=== PATIENT | male | born 1990 | race African-American/Black ===

== ENCOUNTER 2020-08-09 12:20 | Emergency (ER) | payer SELFPAY ==
--- NOTE | 2020-08-09 13:06 | TELE ---
HPI Do you have fever,cough or shortness of breath?: No - General History Source: Patient Exam Limitations: No Limitations - History of Present Illness 08/09/20 13:03 Patient is a 30-year-old male who participated in a virtual urgent care visit requesting a Covid test for preprocedure for colonoscopy on 08/15/2020. The patient states he believes he needs the test within 5 days of his procedure. He denies any symptoms at all. He denies any recent travel outside of the within the last 30 days, or outside of [place] within the last 15. He denies any known Covid contacts. The patient has no past medical history no allergies to medications. Review of Systems - Review of Systems Comments:: 08/09/20 13:04 - Review of Systems Able to Perform ROS?: Yes Constitutional: No: Fever, Chills, Loss of Appetite, Night Sweats, Weakness; positive: Routine Covid testing preprocedure HEENTM: No: Eye Pain, Vision changes, Ear Pain, Throat Pain, Throat Swelling, Mouth Pain, Difficulty Swallowing Respiratory: No: Cough, Shortness of Breath, Wheezing, Sputum Production Cardiac (ROS): No: Chest Pain, Chest Tightness, Palpitations, Irregular Heart Beat, Edema ABD/GI: No: Nausea, Vomiting, Abdominal Pain, Diarrhea : No Dysuria, No Hematuria, No Frequency, No Urgency Musculoskeletal: No: Muscle Pain, Back Pain, Joint Pain, Muscle Weakness, Neck Pain Integumentary: No: Lesions, Rash Neurological: No: Headache, Numbness, Tingling, Weakness, Speech Difficulties *Physical Exam - Physical Exam 08/09/20 13:04 - Physical Exam General Appearance: Nourished, Appropriately Dressed, No Distress HEENT: EOMI, Normal Voice, Hearing Grossly Normal Neck: No Decreased range of motion Respiratory/Chest: Normal chest excursion appreciated, No Accessory Muscle Use Gastrointestinal/Abdominal: No distention Musculoskeletal: Normal Inspection Integumentary: Normal Color, Dry. No Rash Neurologic: roll setter II-XII NML intact, Fully Oriented, Alert, Normal Mood/Affect, Normal Response - Medical Decision Making 08/09/20 13:04 Assessment: Patient is a 30-year-old male requesting a Covid test preprocedure for colonoscopy on 08/15/2020. He is completely asymptomatic. Plan: -Covid swab ordered -Covid counseling given, isolation precautions reviewed -Patient to proceed to our [facility] for testing, the test was ordered for 08/12/2020 as the patient is requesting it to be done 72 hours prior to his procedure on 08/15/2020. -He understands and agrees with this treatment and plan Discharge Diagnosis at time of Disposition: Counseled about COVID-19 virus infection - Referrals - Patient Instructions Discharge Instructions: [facility] Instructions, [facility] COVID-19 Isolation Protocol Additional Discharge Instructions: You were seen via a telehealth visit and tested for COVID today. You should follow isolation precautions as per [facility] guidelines. Thank you for participating in our telehealth medicine program. If you have any worsening symptoms such as high fever, shaking chills, profuse vomiting or any other worsening symptoms you should go to your local emergency department immediately or follow up with your primary care doctor immediately. If you become symptomatic: Take Tylenol 650 mg every 6 hours as needed for fever or pain. You may take Robitussin or other [id number] cough syrup. Follow the dosing instructions on the bottle. Warm tea, honey, and salt water gargles may help your symptoms. Please take precautions and self quarantine for 2 weeks and follow-up with your primary care doctor and the Department of Health. Return to the nearest emergency department for shortness of breath, difficulty breathing, chest pain, or if you have any changes in your symptoms. - Discharge Disposition: HOME Condition at time of Disposition: Stable
== END 2020-08-09 13:06 | disposition home or self-care (01) ==
LOC: JVIRT 12:20
DX: Z11.59 Encounter for screening for other viral diseases (principal)
CPT/HCPCS: C9803; Q3014-GT; U0003

== ENCOUNTER 2020-08-15 12:41 | Day surgery (SDC) | payer BC ==
[2020-08-14 15:29] VITALS: BMI 34.8
[2020-08-15] MEDS ORDERED: LIDOCAINE HCL/PF 2% SDV 5ML VIAL ONE (12:50)
[2020-08-15] MEDS ORDERED: PROPOFOL 20 ML ONE ×3 (12:50)
[2020-08-15 13:54] VITALS: TEMP 97.8
[2020-08-15 14:44] VITALS: BP 110/65; PULSE 78
== END 2020-08-15 14:20 | disposition home or self-care (01) ==
LOC: FASU-ENDO 12:41
PROVIDERS: ATTEND Internal Medicine Gastroenterology
PROC: 0DJD8ZZ Inspection of Lower Intestinal Tract, Via Natural or Artificial Opening Endoscopic (ICD-10-PCS; principal; 2020-08-15 13:15)
DX: R10.9 Unspecified abdominal pain (principal); K64.1 Second degree hemorrhoids